=== PATIENT | male | born 1950 ===

== ENCOUNTER → 2018-02-14 | Outpatient (CLI) | payer MEDICARE, OTHER ==
[~2018-02-14] MED LIST: METO100ER PO; ZESTORETIC 20-121 EA PO
== END | disposition home or self-care (01) ==
LOC: PLD 10:42 → LAB SHORT 10:42
DX: D36.17 Benign neoplasm of peripheral nerves and autonomic nervous system of trunk, unspecified (principal); L57.0 Actinic keratosis; L81.4 Other melanin hyperpigmentation
CPT/HCPCS: 88305; 88342

== ENCOUNTER → 2019-01-26 | Outpatient (CLI) | payer MEDICARE, OTHER | END | disposition home or self-care (01) | LOC: PLD 10:06 → LAB SHORT 10:06 | DX: L82.1 Other seborrheic keratosis (principal); L28.1 Prurigo nodularis | CPT/HCPCS: 88305; 88312 ==

== ENCOUNTER → 2021-09-16 | Outpatient (CLI) | payer MEDICARE, BC | END | disposition home or self-care (01) | LOC: LAB SHORT 11:20 | DX: L57.0 Actinic keratosis (principal) | CPT/HCPCS: 88305 ==